=== PATIENT | female | born 1955 | race Caucasian/White ===

== ENCOUNTER → 2025-02-19 | Outpatient (CLI) | payer OTHER, SELFPAY ==
[2025-02-19 08:33] LABS: Basophils % (Auto) 0 % (0-2.5); Eosinophils # (Auto) 0.2 Thou/mm3 (0.0-0.5); Eosinophils % (Auto) 2 % (0-10); Hematocrit 43.7 % (36.0-46.0); Hemoglobin 14.7 g/dL (12.0-16.0); Immature Granulocytes % (Auto) 1 % (0-0); Immature Granulocytes Auto 0.06 Thou/mm3 (0.00-0.00); Lymphocytes # (Auto) 3.1 Thou/mm3 (1.0-4.8); Lymphocytes % (Auto) 39 % (10-50); Mean Corpuscular HGB Conc 33.6 g/dl (31.0-37.0); Mean Corpuscular Hemoglobin 28.8 pg (25.0-35.0); Mean Corpuscular Volume 86 fL (80-100); Monocytes # (Auto) 0.6 Thou/mm3 (0.0-0.8); Monocytes % (Auto) 7 % (0-12); Neutrophils # (Auto) 4.2 Thou/mm3 (1.8-7.7); Neutrophils % (Auto) 52 % (37-80); Nucleated Red Blood Cell % 0 /100 WBC (0); Platelet Count 261 Thou/mm3 (140-440); RDW Standard Deviation 42.8 fL (36.4-46.3); White Blood Count 8.1 Thou/mm3 (3.6-11.0)
[2025-02-19 09:33] LABS: Glucose Estimated Average 200 mg/dL (80-131); Hemoglobin A1C 8.6 % Hgb (4.8-6.0)
[2025-02-19 09:54] LABS: Alanine Aminotransferase 23 U/L (10-49); Albumin, Serum 4.7 gm/dL (3.4-4.8); Alkaline Phosphatase 72 U/L (46-116); Anion Gap 7 (7-16); Aspartate Amino Transferase 25 U/L (0-34); BUN/Creatinine Ratio 24 Ratio (12-20); Bilirubin,Direct 0.1 mg/dL (0.0-0.3); Bilirubin,Total 0.4 mg/dL (0.3-1.2); Blood Urea Nitrogen 17 mg/dL (9-23); Calcium 10.3 mg/dL (8.3-10.6); Carbon Dioxide 28.1 mMol/L (20.0-31.0); Cardiac Risk Estimate 2.8 RATIO (3.7-5.6); Chloride 105 mMol/L (98-107); Cholesterol 122 mg/dL (132-200); Creatinine (Component) 0.7 mg/dL (0.6-1.3); Free T4 (Free Thyroxine) 1.14 ng/dL (0.89-1.76); Glucose 201 mg/dL (74-106); HDL Cholesterol 44 mg/dL (40-60); LDL Cholesterol,Calculated 34 mg/dL (0-130); Osmolality,Calculated 286 (275-295); Potassium 4.8 mMol/L (3.4-5.1); Sodium 140 mMol/L (136-145); Thyroid Stimulating Hormone 1.63 uIU/mL (0.55-4.78); Triglycerides 221 mg/dL (30-150); Troponin I < 0.020 ng/mL (0.0-0.045); eGFR > 60 See Note
== END | disposition home or self-care (01) ==
LOC: COPL 07:54
PROVIDERS: PCP Family Medicine; Referring Provider Internal Medicine Cardiovascular Disease; Visit Provider Internal Medicine Cardiovascular Disease
DX: I10 Essential (primary) hypertension (principal); E78.5 Hyperlipidemia, unspecified; E11.65 Type 2 diabetes mellitus with hyperglycemia; I20.9 Angina pectoris, unspecified; I49.9 Cardiac arrhythmia, unspecified
CPT/HCPCS: 36415; 80048; 80061; 80076; 83036; 84439; 84443; 84484; 85025

== ENCOUNTER → 2025-03-12 | Outpatient (CLI) | payer OTHER, SELFPAY ==
--- NOTE | 2025-03-12 16:00 | XR_ITS ---
Examination: CT chest, without intravenous contrast. Sagittal and coronal 2-D reconstructions. Exam date and time: March 12, 2025 1620 hours INDICATIONS: CT chest May 01, 2024 2 mm pulmonary nodule left upper lobe 7 mm pulmonary nodule lingular segment left upper lobe 2 mm pulmonary nodule right upper lobe CTDI:vol (mGy) 11.7 DLP: (mGycm) ordered 19 Technique: Multiple 3.0 mm axial sections of the chest to been obtained. Bone and lung density settings are obtained. Sagittal and coronal 2-D reconstructions have been obtained. Low dose protocols were performed. One or more of the following dose reduction techniques were used; automated exposure control, adjustment of the mA and/or KV according to patient size, use of iterative reconstruction technique. Findings: 12 mm left thyroid nodule Thoracic aorta calcification no aneurysmal dilatation Pulmonary artery segments are not enlarged Prominent calcification left anterior descending coronary artery No paratracheal tracheobronchial or bronchopulmonary adenopathy Stable bilateral pulmonary nodules No new pulmonary nodules No pneumonia or pulmonary edema No focal liver or splenic lesions Absent gallbladder No pancreatic mass Kidneys partially visualized no hydronephrosis IMPRESSION: 12 mm left thyroid nodule, recommend dedicated thyroid sonography follow-up Stable bilateral pulmonary nodules No new pulmonary nodules
== END | disposition home or self-care (01) ==
PROVIDERS: PCP Family Medicine; Referring Provider Student in an Organized Health Care Education/Training Program; Visit Provider Student in an Organized Health Care Education/Training Program
DX: R91.8 Other nonspecific abnormal finding of lung field (principal); E04.1 Nontoxic single thyroid nodule
CPT/HCPCS: 71250

== ENCOUNTER → 2025-03-14 | Outpatient (CLI) | payer OTHER, SELFPAY ==
--- NOTE | 2025-03-14 10:45 | XR_ITS ---
Examination: Screening digital mammography, bilateral Computer aided detection 3-D breast Tomosynthesis, bilateral Date and time of exam: March 14, 2025 1034 hours Compared to mammograms dating to November 09, 2020 Indication: Screening Technique: Nonmagnified MLO, CC views of the breasts to been obtained, reconstructed from 3-D Tomosynthesis images. R2 computer aided detection program utilized for evaluation of suspicious masses and/or abnormal calcifications. 3-D Tomosynthesis images obtained. Findings: Scattered areas of fibroglandular density. 10 mm focal asymmetry upper right breast MLO view, anterior depth, 4.6 cm from the nipple Impression: BI-RADS Category 0: Incomplete: Need additional imaging evaluation 10 mm focal asymmetry upper right breast MLO view, recommend follow-up spot tomographic views upper outer quadrant right breast anterior depth, right breast sonography to complete the workup.
== END | disposition home or self-care (01) ==
LOC: CDIM 10:25
PROVIDERS: Referring Provider Student in an Organized Health Care Education/Training Program; Visit Provider Student in an Organized Health Care Education/Training Program
DX: Z12.31 Encounter for screening mammogram for malignant neoplasm of breast (principal); N64.89 Other specified disorders of breast
CPT/HCPCS: 77063; 77067

== ENCOUNTER → 2025-04-03 | Outpatient (CLI) | payer OTHER, SELFPAY ==
--- NOTE | 2025-04-03 13:30 | XR_ITS ---
Examination: Breast ultrasound, unilateral, right Date and time of exam: April 03, 2025 1337 hours INDICATIONS: Mammogram March 14, 2025 10 mm focal asymmetry upper right breast MLO view, 4.6 cm from the nipple Technique: Real-time prasad scale ultrasonographic imaging performed right breast including all 4 quadrants as well as nipple retroareolar and axillary region. Findings: 6:00 nodule circumscribed 4 x 5 mm IMPRESSION: BI-RADS Category 3: Probably benign findings One additional 6 month right breast sonogram follow-up is needed to document stability of 6:00 nodule described above
--- NOTE | 2025-04-03 14:00 | XR_ITS ---
Examination: Diagnostic digital mammography, unilateral, right Computer aided detection 3-D breast Tomosynthesis, unilateral Date and time of exam: March 2025 1402 hours INDICATIONS: Mammogram March 14, 2025 10 mm focal asymmetry upper right breast MLO view anterior depth 4.6 cm from the nipple Technique: Nonmagnified MLO, CC views of the right breast have been obtained, reconstructed from 3-D Tomosynthesis images. R2 computer aided detection program utilized for evaluation of suspicious masses and/or abnormal calcifications. 3-D Tomosynthesis images obtained. Findings: Scattered areas of fibroglandular density Persistent focal asymmetry upper right breast and slightly outer right breast on the spot compression cc view probably benign Impression: BI-RADS category 3: Probably benign findings One additional 6 month right mammogram follow-up is needed
--- NOTE | 2025-04-03 14:15 | XR_ITS ---
Examination: Thyroid sonography complete TECHNIQUE: Grayscale sonographic images thyroid lobes Exam date and time: April 03, 2025 1348 hours INDICATIONS: CT chest study March 12, 2025 12 mm left thyroid nodule FINDINGS: Right thyroid 3.6 cm Midpole nodule 5 x 5 mm. Lower pole cyst 4 x 3 mm Left thyroid 3.8 cm Midpole complex cyst with internal echoes 19 x 16 x 13 mm IMPRESSION: Thyroid nodules and cysts as above
== END | disposition home or self-care (01) ==
LOC: CDIM 13:10
PROVIDERS: PCP Family Medicine; Referring Provider Student in an Organized Health Care Education/Training Program; Visit Provider Student in an Organized Health Care Education/Training Program
DX: R92.331 Mammographic heterogeneous density, right breast (principal); E04.2 Nontoxic multinodular goiter; N63.15 Unspecified lump in the right breast, overlapping quadrants
CPT/HCPCS: 76536; 76641; 77061; 77065; G0279

== ENCOUNTER → 2025-06-13 | Outpatient (CLI) | payer OTHER, SELFPAY | END | disposition home or self-care (01) | PROVIDERS: PCP Student in an Organized Health Care Education/Training Program; Referring Provider Student in an Organized Health Care Education/Training Program; Visit Provider Physician Assistant | DX: L02.31 Cutaneous abscess of buttock (principal); L81.8 Other specified disorders of pigmentation; E11.69 Type 2 diabetes mellitus with other specified complication; Z79.84 Long term (current) use of oral hypoglycemic drugs; J44.9 Chronic obstructive pulmonary disease, unspecified; F17.200 Nicotine dependence, unspecified, uncomplicated; I10 Essential (primary) hypertension | CPT/HCPCS: 99213; G0463 ==

== ENCOUNTER → 2025-06-17 | Outpatient (CLI) | payer OTHER, SELFPAY ==
[2025-06-17 08:54] LABS: Basophils # (Auto) 0.0 Thou/mm3 (0.0-0.2); Basophils % (Auto) 0 % (0-2.5); Eosinophils # (Auto) 0.1 Thou/mm3 (0.0-0.5); Eosinophils % (Auto) 1 % (0-10); Hematocrit 44.7 % (36.0-46.0); Hemoglobin 15.0 g/dL (12.0-16.0); Immature Granulocytes Auto 0.05 Thou/mm3 (0.00-0.00); Lymphocytes # (Auto) 2.6 Thou/mm3 (1.0-4.8); Lymphocytes % (Auto) 30 % (10-50); Mean Corpuscular HGB Conc 33.6 g/dl (31.0-37.0); Mean Corpuscular Hemoglobin 29.6 pg (25.0-35.0); Mean Corpuscular Volume 88 fL (80-100); Monocytes # (Auto) 0.6 Thou/mm3 (0.0-0.8); Monocytes % (Auto) 7 % (0-12); Neutrophils # (Auto) 5.3 Thou/mm3 (1.8-7.7); Neutrophils % (Auto) 61 % (37-80); Nucleated Red Blood Cell # 0.00 Thou/mm3 (0.00-0.00); Nucleated Red Blood Cell % 0 /100 WBC (0); Platelet Count 251 Thou/mm3 (140-440); RDW Standard Deviation 45.8 fL (36.4-46.3); Red Blood Count 5.06 Miln/mm3 (4.00-5.20); White Blood Count 8.7 Thou/mm3 (3.6-11.0)
[2025-06-17 09:06] LABS: Glucose Estimated Average 189 mg/dL (80-131); Hemoglobin A1C 8.2 % Hgb (4.8-6.0)
[2025-06-17 09:08] LABS: Creatinine MALB Rnd Ur 91 mg/dL (30-125); Microalbumin Creat Ratio 41 mg/gCrea (<30); Microalbumin, Random Urine 37 mg/L (0-300)
[2025-06-17 09:20] LABS: Alanine Aminotransferase 19 U/L (10-49); Albumin, Serum 4.6 gm/dL (3.4-4.8); Albumin/Globulin Ratio 1.9 (1.2-2.2); Alkaline Phosphatase 65 U/L (46-116); Anion Gap 10 (7-16); Aspartate Amino Transferase 24 U/L (0-34); BUN/Creatinine Ratio 18 Ratio (12-20); Bilirubin,Total 0.4 mg/dL (0.3-1.2); Blood Urea Nitrogen 14 mg/dL (9-23); Calcium 9.3 mg/dL (8.3-10.6); Calcium (Corrected) 9.3 mg/dL (8.5-10.1); Carbon Dioxide 28.5 mMol/L (20.0-31.0); Cardiac Risk Estimate 2.4 RATIO (3.7-5.6); Chloride 104 mMol/L (98-107); Cholesterol 106 mg/dL (132-200); Creatinine (Component) 0.8 mg/dL (0.6-1.3); Globulin 2.4 gm/dL (2.3-3.5); Glucose 188 mg/dL (74-106); HDL Cholesterol 44 mg/dL (40-60); LDL Cholesterol,Calculated 30 mg/dL (0-130); Osmolality,Calculated 288 (275-295); Potassium 4.5 mMol/L (3.4-5.1); Sodium 142 mMol/L (136-145); Total Protein 7.0 gm/dL (5.7-8.2); Triglycerides 160 mg/dL (30-150); eGFR > 60 See Note
== END | disposition home or self-care (01) ==
LOC: COPL 07:39
PROVIDERS: PCP Family Medicine; Referring Provider Internal Medicine; Visit Provider Internal Medicine
DX: I10 Essential (primary) hypertension (principal); E78.5 Hyperlipidemia, unspecified; E11.40 Type 2 diabetes mellitus with diabetic neuropathy, unspecified
CPT/HCPCS: 36415; 80053; 80061; 82043; 82570; 83036; 85025

== ENCOUNTER → 2025-06-24 | Outpatient (CLI) | payer OTHER, SELFPAY ==
--- NOTE | 2025-06-24 09:00 | XR_ITS ---
Examination: Ultrasound soft tissue extremity right buttock TECHNIQUE: Grayscale sonographic images soft tissue right buttock region Date and time: June 24, 2025 0906 hours INDICATIONS: Palpable lump and tenderness in the right buttock region 4 months FINDINGS: 2.7 x 0.4 x 2.5 cm tubular mass in the soft tissue right buttock IMPRESSION: Soft tissue mass in the right buttock as above Recommend CT scan pelvis follow-up to better assess for abscess versus soft tissue mass at this site
== END | disposition home or self-care (01) ==
PROVIDERS: PCP Student in an Organized Health Care Education/Training Program; Referring Provider Physician Assistant; Visit Provider Physician Assistant
DX: L02.31 Cutaneous abscess of buttock (principal)
CPT/HCPCS: 76882

== ENCOUNTER → 2025-06-27 | Outpatient (CLI) | payer OTHER, SELFPAY | END | disposition home or self-care (01) | LOC: SWHD 10:29 | PROVIDERS: PCP Family Medicine; Referring Provider Family Medicine; Visit Provider Student in an Organized Health Care Education/Training Program | DX: L02.31 Cutaneous abscess of buttock (principal); L81.8 Other specified disorders of pigmentation; E11.69 Type 2 diabetes mellitus with other specified complication; Z79.84 Long term (current) use of oral hypoglycemic drugs; J44.9 Chronic obstructive pulmonary disease, unspecified; F17.200 Nicotine dependence, unspecified, uncomplicated; I10 Essential (primary) hypertension | CPT/HCPCS: 99212; A9270; G0463 ==

== ENCOUNTER → 2025-07-18 | Outpatient (CLI) | payer OTHER, SELFPAY ==
--- NOTE | 2025-07-18 14:00 | XR_ITS ---
Examination: CT pelvis, with intravenous contrast. 2-D sagittal reconstructions. 2-D coronal reconstructions. 3-D reconstructions. Date and time of exam:July 18, 2025 1416 hours INDICATIONS: Palpable lump in the right gluteus muscle and pain several weeks CTDI: vol (mGy):13 DLP: (mGycm):347 Technique: Multiple 1.25 mm axial sections of the pelvis post intravenous administration 60 cc [id number] have been obtained. 2-D sagittal and coronal reconstructions have been obtained. 3-D reconstructions have been obtained. Low dose protocols were performed. One or more of the following dose reduction techniques were used; automated exposure control, adjustment of the mA and/or KV according to patient size, use of iterative reconstruction technique. Findings: No bowel obstruction Abundant contrast in the cecum No pericecal inflammatory change Absent uterus No pelvic mass Urinary bladder wall is thickened up to 5 mm with pericystic inflammatory change Cellulitis pattern in the right buttock region axial image 127 without fluid-filled abscess There is adjacent skin thickening No cellulitis pattern in the peritoneum No perianal abscess Severe osteopenia IMPRESSION: Cellulitis pattern in the right buttock region without fluid-filled abscess, consider ultrasound soft tissue of this area follow-up Significant cystitis pattern
== END | disposition home or self-care (01) ==
LOC: CCTX 13:48
PROVIDERS: PCP Family Medicine; Referring Provider Surgery; Visit Provider Surgery
DX: L03.317 Cellulitis of buttock (principal)
CPT/HCPCS: 72193; A4649; Q9967

== ENCOUNTER → 2025-07-21 | Outpatient (CLI) | payer OTHER, SELFPAY ==
[2025-07-21 09:39] LABS: Alanine Aminotransferase 21 U/L (10-49); Albumin, Serum 4.5 gm/dL (3.4-4.8); Albumin/Globulin Ratio 1.6 (1.2-2.2); Alkaline Phosphatase 66 U/L (46-116); Anion Gap 9 (7-16); Aspartate Amino Transferase 31 U/L (0-34); BUN/Creatinine Ratio 13 Ratio (12-20); Bilirubin,Total 0.3 mg/dL (0.3-1.2); Blood Urea Nitrogen 9 mg/dL (9-23); Calcium 9.5 mg/dL (8.3-10.6); Calcium (Corrected) 9.5 mg/dL (8.5-10.1); Carbon Dioxide 26.1 mMol/L (20.0-31.0); Chloride 103 mMol/L (98-107); Creatinine (Component) 0.7 mg/dL (0.6-1.3); Globulin 2.8 gm/dL (2.3-3.5); Glucose 224 mg/dL (74-106); Osmolality,Calculated 281 (275-295); Potassium 4.8 mMol/L (3.4-5.1); Sodium 138 mMol/L (136-145); Total Protein 7.3 gm/dL (5.7-8.2); eGFR > 60 See Note
== END | disposition home or self-care (01) ==
LOC: COPL 07:51
PROVIDERS: PCP Nurse Practitioner Family; Referring Provider Nurse Practitioner Family; Visit Provider Nurse Practitioner Family
DX: E11.65 Type 2 diabetes mellitus with hyperglycemia (principal)
CPT/HCPCS: 36415; 80053

== ENCOUNTER → 2025-07-25 | Outpatient (CLI) | payer OTHER, SELFPAY | END | disposition home or self-care (01) | LOC: SWHD 09:50 | PROVIDERS: PCP Family Medicine; Referring Provider Family Medicine; Visit Provider Surgery | DX: L02.31 Cutaneous abscess of buttock (principal); L81.8 Other specified disorders of pigmentation; E11.69 Type 2 diabetes mellitus with other specified complication; Z79.84 Long term (current) use of oral hypoglycemic drugs; I10 Essential (primary) hypertension; F17.200 Nicotine dependence, unspecified, uncomplicated | CPT/HCPCS: 99212; G0463 ==

== ENCOUNTER → 2025-08-29 | Outpatient (CLI) | payer OTHER, SELFPAY | END | disposition home or self-care (01) | LOC: SWHD 10:58 | PROVIDERS: PCP Family Medicine; Referring Provider Family Medicine; Visit Provider Student in an Organized Health Care Education/Training Program | DX: L02.31 Cutaneous abscess of buttock (principal); L81.8 Other specified disorders of pigmentation; E11.69 Type 2 diabetes mellitus with other specified complication; F17.200 Nicotine dependence, unspecified, uncomplicated; Z79.84 Long term (current) use of oral hypoglycemic drugs; I10 Essential (primary) hypertension | CPT/HCPCS: 99212; G0463 ==